=== PATIENT | male | born 1950 | race Caucasian/White ===

== ENCOUNTER → 2020-08-26 | Outpatient (CLI) | payer MEDICARE, OTHER ==
[2016-02-27 15:27] VITALS: BP 133/76
[~2020-08-26] MED LIST: ASPI325T8 PO; METO-269 PO; NIAC1000 PO; PANT40TA77 PO; SIMV10TA15 PO
== END ==
LOC: RT 18:50
PROVIDERS: ATTEND Internal Medicine
DX: G47.33 Obstructive sleep apnea (adult) (pediatric) (principal)
CPT/HCPCS: 95811